=== PATIENT | female | born 1985 | race Caucasian/White ===

== ENCOUNTER 2017-03-14 23:56 | Emergency (ER) | payer OTHER ==
[~2017-03-14] VITALS: Ht 149.9 cm; Wt 84.4 kg
[~2017-03-14 23:56] MED LIST: KETO10TA2 PO
[2017-03-15] MEDS ORDERED: URIN D.S. TABL1 EACH PO (02:19)
[2017-03-15] MEDS ORDERED: BACTRIM 400-801 EACH PO (02:19)
== END 2017-03-15 | disposition home or self-care (01) ==
LOC: ER 23:56
DX: N39.0 Urinary tract infection, site not specified (principal)

== ENCOUNTER 2017-09-19 09:02 | Outpatient (CLI) | payer OTHER ==
[~2017-09-19 09:02] MED LIST changes: +BACTRIM 400-801 EACH PO; +URIN D.S. TABL1 EACH PO
== END 2017-09-19 11:47 | disposition home or self-care (01) ==
LOC: NUCLEAR 09:02
DX: I34.1 Nonrheumatic mitral (valve) prolapse (principal)

== ENCOUNTER 2018-02-18 16:39 | Emergency (ER) | payer OTHER ==
[~2018-02-18] VITALS: Ht 149.9 cm; Wt 81.6 kg
[2018-02-18] MEDS ORDERED: TOPROL XL100 M1 PO (16:48)
== END 2018-02-18 20:34 | disposition home or self-care (01) ==
LOC: ER 16:39
DX: S09.8XXA Other specified injuries of head, initial encounter (principal); W18.39XA Other fall on same level, initial encounter; Y93.89 Activity, other specified; Y92.89 Other specified places as the place of occurrence of the external cause; Y99.8 Other external cause status

== ENCOUNTER 2019-09-13 07:12 | Emergency (ER) | payer OTHER ==
[~2019-09-13] VITALS: Ht 149.9 cm; Wt 86.2 kg
[~2019-09-13 07:12] MED LIST changes: +TOPROL XL100 M1 PO
== END 2019-09-13 11:37 | disposition home or self-care (01) ==
LOC: ER 07:12
DX: I16.0 Hypertensive urgency (principal); I10 Essential (primary) hypertension; M54.5 Low back pain

== ENCOUNTER 2021-12-29 04:40 | Emergency (ER) | payer OTHER ==
[~2021-12-29] VITALS: Ht 149.9 cm; Wt 90.7 kg
[2021-12-29] MEDS ORDERED: PREPARATION H R28 GM RECTAL (06:20)
== END 2021-12-29 06:33 | disposition home or self-care (01) ==
LOC: ER 04:40
DX: L29.0 Pruritus ani (principal); K64.9 Unspecified hemorrhoids